=== PATIENT | female | born 1980 | race Caucasian/White ===

== ENCOUNTER 2018-05-08 08:27 | Emergency (ER) | payer OTHER ==
[~2018-05-08] VITALS: Ht 165.1 cm; Wt 90.7 kg
[~2018-05-08 08:27] MED LIST: ANAGRELIDE HCL0.5 MG; ANAGRELIDE HCL1 MG; ASA325 M1; B-TREX; METOPROLOL SUCC25 MG; VASOTEC20 MG
[2018-05-08] MEDS ORDERED: ARMOUR THYROID30 M1 (08:51)
[2018-05-08] MEDS ORDERED: LOTREL 5-20 MG1 CAP (08:51)
== END 2018-05-08 18:12 | disposition home or self-care (01) ==
LOC: ER 08:27
DX: K52.89 Other specified noninfective gastroenteritis and colitis (principal); E86.0 Dehydration; B34.9 Viral infection, unspecified

== ENCOUNTER 2018-12-01 04:57 | Emergency (ER) | payer OTHER ==
[~2018-12-01] VITALS: Ht 165.1 cm; Wt 97.5 kg
[~2018-12-01 04:57] MED LIST changes: +ARMOUR THYROID30 M1; +LOTREL 5-20 MG1 CAP
== END 2018-12-01 14:48 | disposition home or self-care (01) ==
LOC: ER 04:57
DX: K52.9 Noninfective gastroenteritis and colitis, unspecified (principal)

== ENCOUNTER 2020-01-14 21:40 | Emergency (ER) | payer OTHER ==
[~2020-01-14] VITALS: Ht 165.1 cm; Wt 93.9 kg
[2020-01-15] MEDS ORDERED: DUI500 PO (14:36)
== END 2020-01-15 14:51 | disposition home or self-care (01) ==
LOC: ER 21:40
DX: S40.021A Contusion of right upper arm, initial encounter (principal); L03.123 Acute lymphangitis of right upper limb; L03.113 Cellulitis of right upper limb; M79.601 Pain in right arm; X58.XXXA Exposure to other specified factors, initial encounter; Y93.89 Activity, other specified; Y92.89 Other specified places as the place of occurrence of the external cause; Y99.8 Other external cause status

== ENCOUNTER 2024-03-15 07:49 | Emergency (ER) | payer OTHER ==
[~2024-03-15] VITALS: Ht 165.1 cm; Wt 98.0 kg
[~2024-03-15 07:49] MED LIST changes: +DUI500 PO
[2024-03-15] MEDS ORDERED: SINGULAIR10 MG PO (08:16)
[2024-03-15] MEDS ORDERED: ZYRTEC10 M3 PO (08:16)
[2024-03-15] MEDS ORDERED: TOPROL XL100 M1 PO (08:17)
[2024-03-15] MEDS ORDERED: BITREX (08:17)
[2024-03-15] MEDS ORDERED: PRILOSEC10 MG PO (08:17)
[2024-03-15] MEDS ORDERED: KETOROLAC TROMETHAMINE 30 MG VIAL IV STA (08:46)
[2024-03-15] MEDS ORDERED: ORPHENADRINE CITRATE 30 MG/ML AMPUL IV STA (08:46)
[2024-03-15] MEDS ORDERED: KETOROLAC TROMETHAMINE 30 MG VIAL ONE (08:59)
[2024-03-15] MEDS ORDERED: ORPHENADRINE CITRATE 30 MG/ML AMPUL ONE (08:59)
[2024-03-15] MEDS ORDERED: KETOROLAC TROMETHAMINE 30 MG VIAL IM ONE (09:00)
== END 2024-03-15 12:04 | disposition home or self-care (01) ==
LOC: ER 07:49
DX: M62.838 Other muscle spasm (principal); I10 Essential (primary) hypertension; E03.9 Hypothyroidism, unspecified